=== PATIENT | female | born 2000 | race American Indian/Alaskan Native ===

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

== ENCOUNTER 2019-01-04 16:51 | Emergency (ER) | payer SELFPAY ==
--- NOTE | 2019-01-04 16:58 | Event Note ---
ED Screening Note Date of service: 01/04/19 Time: 16:55 ED Screening Note: This is a 18 y.o. F. that presents to the ER with nausea, vomiting, headache which started a few hours ago at work. LMP 11/14/2018, 0 Denies recent travel This initial assessment/diagnostic orders/clinical plan/treatment(s) is/are subject to change based on patients health status, clinical progression and re- assessment by fellow clinical providers in the ED. Further treatment and workup at subsequent clinical providers discretion. Patient/guardian urged not to elope from the ED as their condition may be serious if not clinically assessed and managed. Initial orders include: Labs
[2019-01-04 17:39] LABS: Basophils % (Auto) 0.5 % (0.0-1.8); Eosinophils % (Auto) 0.2 % (0.0-4.3); Hematocrit 35.1 % (30.3-42.9); Hemoglobin 11.9 gm/dl (10.1-14.3); Lymphocytes # (Auto) 2.2 K/mm3 (1.2-5.4); Lymphocytes % (Auto) 25.1 % (13.4-35.0); Mean Corpuscular HGB Conc 34 % (30-34); Mean Corpuscular Volume 81 fl (79-97); Monocytes # (Auto) 0.7 K/mm3 (0.0-0.8); Monocytes % (Auto) 8.1 % (0.0-7.3); Platelet Count 341 K/mm3 (140-440); Red Blood Count 4.35 M/mm3 (3.65-5.03); Red Cell Distribution Width 18.1 % (13.2-15.2)
[2019-01-04 17:45] LABS: Bilirubin,Urine NEG (Negative); Blood,Urine NEG (Negative); Color,Urine Yellow (Yellow); Mucus,Urine 2+ /HPF; Urobilinogen,Urine < 2.0 mg/dL (<2.0)
[2019-01-04] MEDS ORDERED: NACL 0.9% 1000 ML 1,000 ML IV ONE (17:45)
[2019-01-04] MEDS ORDERED: ZOFRAN IV ONE (17:45)
[2019-01-04 17:46] LABS: HCG Qualitative,Urine Negative (Negative)
--- NOTE | 2019-01-04 17:48 | Emergency Department Report ---
ED General Adult HPI - General Chief complaint: Nausea/Vomiting/Diarrhea Stated complaint: VOMITING/HEADACHE/DIZZINESS Time Seen by Provider: 01/04/19 16:55 Source: patient Mode of arrival: Wheelchair Limitations: No Limitations - History of Present Illness Initial comments: Patient is a 18-year-old female presents the emergency room complaints of nausea and vomiting that began this morning. She denies any diarrhea, urinary symptoms, abdominal pain. she denies any recent antibiotics or spoiled foods. states her last menstrual cycle was sometime in November but she is not sure of the day. denies any fever. Denies any past medical history or allergies medications. - Related Data Previous Rx's Medication Instructions Recorded Last Taken Type Ondansetron [Zofran Odt] 4 mg PO Q8HR PRN #14 tab.rapdis 01/04/19 Unknown Rx Allergies Allergy/AdvReac Type Severity Reaction Status Date / Time No Known Allergies Allergy Unverified 11/17/18 14:57 ED Review of Systems ROS: Stated complaint: VOMITING/HEADACHE/DIZZINESS Other details as noted in HPI Comment: All other systems reviewed and negative ED Past Medical Hx - Past Medical History Hx Psychiatric Treatment: Yes (Bi Polar, Schizophrenia.) - Surgical History Past Surgical History?: No - Social History Smoking Status: Never Smoker Substance Use Type: None - Medications Home Medications: Home Medications Medication Instructions Recorded Confirmed Last Taken Type Ondansetron [Zofran Odt] 4 mg PO Q8HR PRN #14 tab.rapdis 01/04/19 Unknown Rx ED Physical Exam - General Limitations: No Limitations General appearance: alert, in no apparent distress - Head Head exam: Present: atraumatic, normocephalic - Eye Eye exam: Present: normal appearance - ENT ENT exam: Present: mucous membranes dry (mild) - Respiratory Respiratory exam: Present: normal lung sounds bilaterally. Absent: respiratory distress, wheezes, rales, rhonchi, stridor, chest wall tenderness, accessory mus parth use, decreased breath sounds, prolonged expiratory - Cardiovascular Cardiovascular Exam: Present: regular rate, normal rhythm, normal heart sounds. Absent: systolic murmur, diastolic murmur, rubs, gallop - GI/Abdominal GI/Abdominal exam: Present: soft, normal bowel sounds. Absent: distended, tenderness, guarding, rebound, rigid - Back Exam Back exam: Absent: CVA tenderness (R), CVA tenderness (L) - Neurological Exam Neurological exam: Present: alert, oriented X3 - Psychiatric Psychiatric exam: Present: normal affect, normal mood - Skin Skin exam: Present: warm, dry, intact ED Course Vital Signs 01/04/19 16:56 Temperature 98.1 F Pulse Rate 98 H Respiratory 16 Rate Blood Pressure 142/82 O2 Sat by Pulse 100 Oximetry ED Medical Decision Making - Lab Data Result diagrams: 01/04/19 17:23 01/04/19 17:23 Lab Results 01/04/19 01/04/19 01/04/19 Range/Units 17:21 17:23 17:23 WBC 8.8 (4.5-11.0) K/mm3 RBC 4.35 (3.65-5.03) M/mm3 Hgb 11.9 (10.1-14.3) gm/dl Hct 35.1 (30.3-42.9) % MCV 81 (79-97) fl MCH 27 L (28-32) pg MCHC 34 (30-34) % RDW 18.1 H (13.2-15.2) % Plt Count 341 (140-440) K/mm3 Lymph % (Auto) 25.1 (13.4-35.0) % [place] % (Auto) 8.1 H (0.0-7.3) % Eos % (Auto) 0.2 (0.0-4.3) % Baso % (Auto) 0.5 (0.0-1.8) % Lymph # 2.2 (1.2-5.4) K/mm3 [place] # 0.7 (0.0-0.8) K/mm3 Eos # 0.0 (0.0-0.4) K/mm3 Baso # 0.0 (0.0-0.1) K/mm3 Seg Neutrophils % 66.1 (40.0-70.0) % Seg Neutrophils # 5.8 (1.8-7.7) K/mm3 Sodium 138 (137-145) mmol/L Potassium 3.4 L (3.6-5.0) mmol/L Chloride 104.2 (98-107) mmol/L Carbon Dioxide 21 L (22-30) mmol/L Anion Gap 16 mmol/L BUN 12 (7-17) mg/dL Creatinine 0.7 (0.7-1.2) mg/dL Estimated GFR > 60 ml/min BUN/Creatinine Ratio 17 % Glucose 93 (65-100) mg/dL Calcium 9.6 (8.4-10.2) mg/dL HCG, Quant (0-4) mIU/mL Urine Color Yellow (Yellow) Urine Turbidity Slightly-cloudy (Clear) Urine pH 5.0 (5.0-7.0) Ur Specific [place] 1.024 (1.003-1.030) Urine Protein 30 mg/dl (Negative) mg/dL Urine Glucose (UA) Neg (Negative) mg/dL Urine Ketones Neg (Negative) mg/dL Urine Blood Neg (Negative) Urine Nitrite Neg (Negative) Urine Bilirubin Neg (Negative) Urine Urobilinogen < 2.0 (<2.0) mg/dL Ur Leukocyte Esterase Neg (Negative) Urine WBC (Auto) 3.0 (0.0-6.0) /HPF Urine RBC (Auto) 1.0 (0.0-6.0) /HPF U Epithel Cells (Auto) 8.0 (0-13.0) /HPF Urine Mucus 2+ /HPF Urine HCG, Qual Negative (Negative) 01/04/19 Range/Units 17:40 WBC (4.5-11.0) K/mm3 RBC (3.65-5.03) M/mm3 Hgb (10.1-14.3) gm/dl Hct (30.3-42.9) % MCV (79-97) fl MCH (28-32) pg MCHC (30-34) % RDW (13.2-15.2) % Plt Count (140-440) K/mm3 Lymph % (Auto) (13.4-35.0) % [place] % (Auto) (0.0-7.3) % Eos % (Auto) (0.0-4.3) % Baso % (Auto) (0.0-1.8) % Lymph # (1.2-5.4) K/mm3 [place] # (0.0-0.8) K/mm3 Eos # (0.0-0.4) K/mm3 Baso # (0.0-0.1) K/mm3 Seg Neutrophils % (40.0-70.0) % Seg Neutrophils # (1.8-7.7) K/mm3 Sodium (137-145) mmol/L Potassium (3.6-5.0) mmol/L Chloride (98-107) mmol/L Carbon Dioxide (22-30) mmol/L Anion Gap mmol/L BUN (7-17) mg/dL Creatinine (0.7-1.2) mg/dL Estimated GFR ml/min BUN/Creatinine Ratio % Glucose (65-100) mg/dL Calcium (8.4-10.2) mg/dL HCG, Quant < 2 (0-4) mIU/mL Urine Color (Yellow) Urine Turbidity (Clear) Urine pH (5.0-7.0) Ur Specific [place] (1.003-1.030) Urine Protein (Negative) mg/dL Urine Glucose (UA) (Negative) mg/dL Urine Ketones (Negative) mg/dL Urine Blood (Negative) Urine Nitrite (Negative) Urine Bilirubin (Negative) Urine Urobilinogen (<2.0) mg/dL Ur Leukocyte Esterase (Negative) Urine WBC (Auto) (0.0-6.0) /HPF Urine RBC (Auto) (0.0-6.0) /HPF U Epithel Cells (Auto) (0-13.0) /HPF Urine Mucus /HPF Urine HCG, Qual (Negative) - Medical Decision Making Patient is a 18-year-old female presents the emergency room complaints of nausea and vomiting that began this morning. She denies any diarrhea, urinary symptoms, abdominal pain. she denies any recent antibiotics or spoiled foods. states her last menstrual cycle was sometime in November but she is not sure of the day. denies any fever. Denies any past medical history or allergies medications. VSS. Critical care attestation.: If time is entered above; I have spent that time in minutes in the direct care of this critically ill patient, excluding procedure time. ED Disposition Clinical Impression: Nausea & vomiting Qualifiers: Vomiting type: unspecified Vomiting Intractability: non-intractable Qualified Code(s): R11.2 - Nausea with vomiting, unspecified Disposition: DC-01 TO HOME OR SELFCARE Is pt being admited?: No Does the pt Need Aspirin: No Condition: Stable Instructions: Acute Nausea and Vomiting (ED) Additional Instructions: please take medication as prescribed as needed. drink plenty of fluids and eat a bland diet over the next couple of days. follow up with a primary care doctor in the next 2-3 days. return to the emergency room for any new or worsening symptoms. Prescriptions: Ondansetron [Zofran Odt] 4 mg PO Q8HR PRN #14 tab.rapdis PRN Reason: Nausea And Vomiting Referrals: J[facility]ON [facility] [Primary Care Provider] - 2-3 Days Time of Disposition: 19:00 Print Language: DANISH
[2019-01-04 17:59] LABS: BUN/Creatinine Ratio 17; Blood Urea Nitrogen 12 mg/dL (7-17); Calcium 9.6 mg/dL (8.4-10.2); Hemolysis Index 8
[2019-01-04 19:21] VITALS: BP 143/74
== END 2019-01-04 19:19 | disposition home or self-care (01) ==
LOC: ED 16:51
DX: R11.2 Nausea with vomiting, unspecified (principal); F31.9 Bipolar disorder, unspecified; F20.9 Schizophrenia, unspecified
CPT/HCPCS: 36415; 80048; 81001; 81025; 84702; 85025; 96361; 96374; 99283; J2405; J7030